=== PATIENT | female | born 1945 | race Two or more races ===

== ENCOUNTER 2025-04-09 14:22 | Emergency (ER) | payer MEDICAID, OTHER, SELFPAY ==
--- OUTSIDE RECORDS SUMMARY | 2025-04-09 12:30 | XMS_ITS | Encounter Summary ---
Author Organization [employer] Address [address] [place] [address] Care Team Providers Care Concrete Journeyman Name Role Phone Dominick Johnson Unavailable Unavail able Reji Aranda INTERNET MARKETING ANALYST Primary Care Provider + [phone] Ellie Nguyễn Unavailable Unavailable Reason for Visit * Reason Comments Follow-up Patient present in o ffice for f/u DM. Patient will receive EKG today. Encounter Details Date Type Department Care Team ([facility] st Contact Info) Description 04/09/2025 12:30 PM EDT Office Visit [facility] [address] [place] [address] Reji Aranda NP [address] [place] [address] Type 2 diabetes mellitus with hyperglycemia, with long-term current use of insulin (HCC) (Primary Dx); Primary hypertension; Hyperlipidemia, unspecified hyperlipidemia type; Stage 4 chronic kidney disease (CMS/HCC) (HCC); Gout, unspecified cause, unspecified chronicity, unspecified site; Hypothyroidism, unspecified type Social History Tobacco Use Types Packs/Day Years Used Date Smoking Tobacco: Never Smokeless Tobacco: Never Alcohol Use Standard Drinks/Week Comments Never 0 (1 standard drink = 0.6 oz pur e alcohol) Alcohol Answer Date Recorded How often do you have a drink containing alcohol ? 0 11/20/2024 How many drinks containing a lcohol do you have on a typical day when you are drinking? 0 11/20/2024 How often do you have six or more drinks on one occasion? 0 11/20/2024 Housing Stability Answer Date Recorded What is your housing situation today? I have margot phelan 11/20/[address] you li ve. Do you have problems with any of the following? None of the above 11/20/2024 Food Insecurity Answer Date Recorded Within the past 12 months, y ou worried that your food would run out before you got money to buy more: Never True 11/20/2024 Within the past 12 months,th e food you bought just didn't last and you didn't have enough money to get more: Never True Transportation Answer Date Recorded In the past 12 months, has l ack of transportation kept you from medical appts, meetings, work or from getting things needed for daily living? No 11/20/2024 Intimate Partner Violence Answer Date R ecorded Within the last year, have y ou been afraid of your partner or ex-partner? 2 07/07/2023 Within the last year, have y ou been humiliated or emotionally abused in other ways by your partner or ex-partner? 2 Within the last year, have y ou been kicked, hit, slapped, or otherwise physically hurt by your partner or ex-partner? 2 07/07/2023 Within the last year, have y ou been raped or forced to have any kind of sexual activity by your partner or ex-partner? 2 07/07/2023 Utilities Answer Date Recorded In the past 12 months, has t he electric, gas, oil or water company threatened to shut off services in your home? No 11/20/2024 Depression Answer Date Recorded Patient Health Questionnaire-2 Score 0 11/20/2024 Internet Access Answer Date Recorded Internet Access Q1 Yes 11/20/2024 Internet Access Q2 Not on file 11/20/2024 Comments Unknown Sex and Gender Information Value Date Recorded Sex Assigned at Female 06/01/2023 9:07 AM EST Legal Sex Female 9:02 AM EST Gender Identity Female 06/01/2023 9:07 AM EST Sexual Orientation Straight 06/01/2023 9: 07 AM EST documented as of this encounter Last Filed Vital Signs Vital Sign Reading Time Taken Comments Blood Pressure 163/78 04/09/2025 12:36 PM EDT Pulse 87 04/09/2025 12:36 PM EDT Temperature 36.6 C (97.9 F) 04/09/2025 12:36 PM EDT Respiratory Rate - - Oxygen Saturation 97% 04/09/2025 12:36 PM EDT Inhaled Oxygen Concentration - - Weight 60.8 kg (134 lb) 04/09/2025 12:36 PM EDT Height 154.9 cm (5' 1 ) 04/09/2025 12:36 PM EDT Body Mass Index 25.32 04/09/2025 12:36 PM EDT documented in this encounter Progress Notes * Reji Aranda NP - 04/09/2025 12:30 PM EDT 04/09/25 Ana Barcenas [id number] HPI: Ana Barcenas is a 80 y.o. female Here with daughter Pt state she is feeling well today Recent ED visit to [facility] with intense facial pain, notes still not available Rxed carbamazepine, presumably for trigeminal neuroalgia Also sent to Dental for oral pain and lip lesion (pending?) Pt states she is not taking the medication, symptoms have resolved, no pain now. T2DM, Rxed Lantus 50 units/day but taking 25 units twice daily Not on Metformin due to CKD A1c 13.4 in 02/2025 Very poor diet, mostly carbs, no vegetables. BS at home in the 300s to 400s, never lower, this morning about 420. Pt denies any polyuria, polydipsia or fatigue CKD Seen by nephrology at [facility] Did not increase ACEI due to mildly elevated K+ Started on Torsemide once daily Vit D was stopped pending labs to evaluate for elevated PTH Has f/u pending HTN, Rxed Lisinopril , states she is taking it , BP has not been controlled. HLD, Rxed atorvastatin 10 mg/day, LDL controlled 11/2024 Hypothyroid, on levothyroxine 25 mcg/day Gout. Pt on allopurinol 50 mg/day (reduced dose due to CKD) No recent sx Hearing loss Seen by audiology, pt has declined hearing aids. 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 Left breast bx many yrs ago, told negative. Colon CA screening? Patient Active Problem List Diagnosis Date Noted Hyperlipidemia 04/07/2025 Stage 4 chronic kidney disease (CMS/HCC) ([facility]) 04/07/2025 Gout 04/07/2025 Hypothyroidism 04/07/2025 Primary open angle glaucoma (POAG) of both eyes 04/07/2025 Secondary hyperparathyroidism, renal (CMS/HCC) 03/12/2025 Primary hypertension 03/12/2025 CKD (chronic kidney disease), stage IV (CMS/HCC) ([facility]) 03/12/2025 Type 2 diabetes mellitus ([facility]) 03/12/2025 Medical History[1] Surgical History[2] Medications Ordered Prior to Encounter[3] Allergies[4] Social History[5] Social History Social History Narrative Born [facility], living with daughter Review of Symptoms: Review of Systems Constitutional: Negative for fatigue. Respiratory: Negative for shortness of breath. Cardiovascular: Negative for chest pain. Endocrine: Negative for polydipsia, polyphagia and polyuria. Physical Exam: BP (!) 163/78 (BP Location: Right arm, Patient Position: Sitting, BP Cuff Size: Adult) Pulse 87 Temp 97.9 ??F (36.6 ??C) (Temporal) Ht 5' 1 (1.549 m) Wt 134 lb (60.8 kg) SpO2 97% BMI 25.32 kg/m?? Physical Exam Constitutional: Appearance: Normal appearance. Comments: Hearing impaired Cardiovascular: Rate and Rhythm: Normal rate and regular rhythm. Pulmonary: Effort: Pulmonary effort is normal. Breath sounds: Normal breath sounds. Neurological: Mental Status: She is alert. Encounter Date: 04/09/25 ECG 12 lead Narrative NSR, HR 69. Normal axis [place] and QRS unremarkable No ST-T changes ASSESSMENT AND PLAN 1. Type 2 diabetes mellitus with hyperglycemia, with long-term current use of insulin ([facility]) (Primary) Pt has uncontrolled diabetes, home readings in the 300-400s, BS in office today of 449. Pt advised to go to ED, will go to [facility]. Notes to be faxed, Triage alerted. We will f/u with patient tomorrow; consider change to 75/25 mix bid. Will need to see framing carpenter. - POCT glucose manually resulted 2. Primary hypertension Uncontrolled. EKG unremarkable today 3. Hyperlipidemia, unspecified hyperlipidemia type 4. Stage 4 chronic kidney disease (CMS/HCC) (HCC) Will f/u with nephrology. 5. Gout, unspecified cause, unspecified chronicity, unspecified site 6. Hypothyroidism, unspecified type Review next visit Follow up for to be arranged following ED visit. Reji Aranda, MSN, MSP, ANP [facility] [address] [place] [address] [1] No past medical history on file. [2] No past surgical history on file. [3] Current Outpatient Medications on File Prior to Visit Medication Sig Dispense Refill allopurinol (Zyloprim) 100 MG tablet Take one-half tablet daily 45 tablet 1 atorvastatin (Lipitor) 10 MG tablet Take 1 tablet (10 mg) by mouth Once per day. 90 tablet 1 carBAMazepine XR (TEGretol XR) 100 MG 12 hr tablet Take 100 mg by mouth 2 times daily. Do not crush, chew, or split. cholecalciferol (Vitamin D-3) 20 MCG (800 UNIT) tablet Take 1 tablet (20 mcg) by mouth Once per day. 90 tablet 1 insulin glargine (Lantus) 100 UNIT/ML injection Inject 50 Units under the skin at bedtime. 15 mL 0 insulin pen needle 29G x 12.7mm misc Use to inject 1-4 times daily as directed. 100 each 11 insulin syringe-needle U-100 31G X 5/16 1 mL misc Use to inject 1-4 times daily as directed. 100 each 3 latanoprost (Xalatan) 0.005 % ophthalmic solution Administer 1 drop into both eyes at bedtime. 2.5 mL 5 levothyroxine (Synthroid, Levoxyl) 25 MCG tablet Take 1 tablet (25 mcg) by mouth Once per day. 90 tablet 1 lisinopril 10 MG tablet Take 1 tablet (10 mg) by mouth Once per day. 90 tablet 1 omega-3 acid ethyl esters (Lovaza) 1 g capsule Take 1 g by mouth 2 times daily. No current facility-administered medications on file prior to visit. [4] No Known Allergies [5] Social History Tobacco Use Smoking status: Never Smokeless tobacco: Never Vaping Use Vaping status: Never Used Substance Use Topics Alcohol use: Never Drug use: Never documented in this encounter Plan of Treatment Upcoming Encounters Date Type Department Care Team (Late st Contact Info) Description 04/10/2025 6:[address] [facility] MEDICAL [address] [place] [address] Reji Aranda NP [address] [place] [address] 05/16/2025 10:00 AM EST Office Visit [facility] OPTOMETRY [address] [place] [address] Megha Long, OD [address] [place] [address] 05/28/2025 10:30 AM EST Office Visit [facility] [address] [place] [address] Reji Aradna NP [address] [place] [address] documented as of this encounter Procedures Procedure Name Priority Date/Time Associated Diagnosis Comments ECG 12-LEAD Routine 04/09/2025 1:25 PM EDT Primary hypertension POCT GLUCOSE Routine 04/09/2025 1:02 PM EDT Type 2 diabetes mellitus with hyperglycemia, with long-term current use of insulin (HCC) documented in this encounter Results * ECG 12 lead (04/09/2025 1:25 PM EDT) Narrative Reji Aranda NP - 04/09/2025 1:25 PM EDT NSR, HR 69. Normal axis [place] and QRS unremarkable No ST-T changes Reji Aranda NP ECG ORDERABLES Final Result * (ABNORMAL) POCT glucose manually resulted (04/09/2025 1:02 PM EDT) Glucose Blood, POC 449(A) 60 - 200 mg/dL Blood Capillary blood specimen / Unknown 04/09/2025 1:02 PM EDT Reji Aranda NP POINT OF CARE TEST ENTER/JAMI T ORDERABLES Final Result documented in this encounter Visit Diagnoses Diagnosis Type 2 diabetes mellitus with hyperglycemia, with long-term current use of insulin (HCC)- Primary Primary hypertension Unspecified essential hypertension Hyperlipidemia, unspecified hyperlipidemia type Stage 4 chronic kidney disease (CMS/HCC) (HCC) Gout, unspecified cause, unspecified chronicity, unspecified site Hypothyroidism, unspecified type documented in this encounter Care Teams Concrete Journeyman Relationship Specialty Start Date End Date Reji Aranda NP [address] [place] [address] PCP - General Internal Medicine 03/02/24 Dominick Johnson Community Health Worker 06/01/23 Ellie Nguyễn Health Navigator Financial Counseling and Assistance Services 09/07/24 documented as of this encounter
[2025-04-09 14:42] VITALS: BP 174/74; PULSE 80; RESP 16; TEMP 37; O2SAT 95; BMI 28.0
--- NOTE | 2025-04-09 14:52 | ECG_ITS ---
Test Reason : hypertension Blood Pressure : */* mmHG Vent. Rate : 77 BPM Atrial Rate : 77 BPM P-R Int : 164 ms QRS Dur : 94 ms QT Int : 406 ms P-R-T Axes : 22 -30 50 degrees QTcB Int : 459 ms Normal sinus rhythm Left axis deviation Moderate voltage criteria for LVH, may be normal variant ( R in aVL , Estuardo product ) Abnormal ECG No previous ECGs available Referred By: Flavio Knight Electronically Signed By: VIDAL MCCOY MD
--- NOTE | 2025-04-09 14:52 | ED.GENADULT ---
HPI - General Adult General Chief complaint: Recheck/Abnormal Lab/Rx Stated complaint: Pc ref here for high glucose, high bp Time Seen by Provider: 04/09/25 16:25 Source: patient, family (patient's granddaughter), EMS and network mgr (all interactions with this patient were facilitated with an [facility] house manager ) Mode of arrival: ambulatory Limitations: language barrier (all interactions with this patient were facilitated with an [facility] house manager ) History of Present Illness ED Provider: Dawna Rojas PA-C HPI narrative: Patient is an 80 year old assigned female at with a history of HTN, CKD, and DM presenting to the emergency department today with an elevated blood pressure and blood sugar from her PCP office. Patient states that she has no complaints. Patient's granddaughter states that the patient has no complaints but her PCP was concerned that her blood sugar was elevated and her blood pressure was as well so they sent her to the emergency department. Patient denies any other complaints at this time. Related Data Allergies Allergy/AdvReac Type Severity Reaction Status Date / Time No Known Allergies Allergy Verified 04/09/25 14:46 Review of Systems Constitutional: Constitutional: Reports as per HPI Eyes: Eyes: Reports as per HPI ENT: Reports as per HPI Cardiovascular: Cardiovascular: Reports as per HPI Respiratory: Respiratory: Reports as per HPI Gastrointestinal: Gastrointestinal: Reports as per HPI Genitourinary: Genitourinary: Reports as per HPI Musculoskeletal: Musculoskeletal: Reports as per HPI Integumentary/Breasts: Skin/Breast: Reports as per HPI Neurologic: Reports as per HPI Psychiatric: Psychiatric: Reports as per HPI Endocrine: Endocrine: Reports as per HPI Hematologic/Lymphatic: Hematologic/Lymphatic: Reports as per HPI Allergic/Immunologic: Allergic/Immunologic: Reports as per HPI [facility] Past Medical History Attestation statement: The following information was validated with the patient. (all information validated with the patient's granddaughter) Source: old records reviewed, obtained from family (patient's granddaughter provided additional history and confirmed the history provided by the patient.) and nursing notes reviewed Social History Social History Advance Directives: No Advance Directives Information Provided: Yes Physical Exam ED Vital Signs: Vital Signs - 24 hr 04/09/25 14:42 04/09/25 17:05 04/09/25 17:59 Temperature 98.6 F 97.8 F 97.8 F Pulse Rate 80 70 70 Respiratory Rate 16 12 12 Blood Pressure 174/74 H 147/64 H 147/64 H Pulse Oximetry 95 94 94 Oxygen Delivery Method Room Air Room Air Room Air BMI result Body Mass Index 28.0 Const General: cooperative, no acute distress, alert and awake Nutritional Appearance: well nourished Orientation/consciousness: patient oriented x3 HENMT Head: Yes normal to inspection and Yes atraumatic Ears: hearing grossly normal bilaterally and external ears normal General nose exam: Normal external nose present, no nasal discharge noted and no epistaxis Face and sinus: Yes normal facial exam, No abrasion and No laceration Mouth: Normal oral and palatal mucosa present, no drooling and no muffled voice Eyes General: appearance normal, both eyes and all related structures Periorbital: periorbital findings normal Eyelids: Yes eyelids normal Conjunctivae: conjunctivae normal Pupils: Equal, round and reactive pupils present EOM: EOMs intact bilaterally Neck Neck: Yes normal visual inspection and Yes full ROM Resp Effort & Inspection: normal respiratory effort and able to speak in complete sentences Neuro General: patient oriented x3, moves all extremities and CN's II-XI intact bilaterally Cranial nerves: Yes Equal, round and reactive pupils present Cognition (Neuro): normal cognition Extrem General: Yes normal to inspection, Yes full ROM and Yes capillary refill normal Psych Appearance: grossly normal Mental Status: mental status grossly normal Affect: normal affect Attitude: cooperative Thought process: Normal thought process present Thought content: Normal thought content present Insight: Good insight present (Psych) Course Course Course Narrative: RME: 80 yold female presents to the ED for hypertension and hyperglycemia. Patient referred to ED from primary care for a glucose of 480 at the clinic in elevated blood pressure. Patient is asymptomatic. Labs ordered Medications Administered Discontinued Medications Generic Name Dose Route Start Last Admin Trade Name Freq PRN Reason Stop Dose Admin Lactated Ringer's 1,000 mls @ 999 mls/hr 04/09/25 17:00 04/09/25 17:59 Lr IV 04/09/25 18:00 Infused .Q1H1M SABINE Infusion Medical Decision Making Medical Decision Making MDM Narrative: Patient is an 80 year old assigned female at with a history of HTN, CKD, and DM presenting to the emergency department today with an elevated blood pressure and blood sugar from her PCP office. Patient's physical exam was as noted in the physical exam portion of this note and unremarkable. Patient's blood work showed a BUN of 51, CR of 1.87, and glucose of 301. I am suspicious these results are chronic for the patient and her baseline however, I am unable to verify this given the patient has never been to [facility] and she has no records at [facility]. Patient's urine showed no acute process. Patient's EKG was unremarkable. I explained my physical exam findings as well as all test results to the patient and the patient's granddaughter. I answered all questions asked by the patient and the patient's granddaughter. Given patient's elevated BUN + glucose + CR, I gave the patient 1 liter of LR. Patient has no evidence of end organ damage and does not need any EMERGENT intervention to her blood pressure or blood sugar at this time. I stressed the importance of the patient taking her medication as directed (either prescribed or as the over the counter packaging recommends). I stressed the importance of the patient following up with her primary care provider. I stressed the importance of the patient returning to the emergency department immediately if [her symptoms were to worsen or if she were to develop any dizziness, shortness of breath, difficulty breathing, chest pain, blurry vision, loss of vision, nausea, vomiting, abdominal pain, fever, chills, back pain, or any other complaints. Patient and the patient's granddaughter verbalized agreement and understanding with this treatment plan and discharge. Differential Diagnosis Differential Diagnoses: The differential diagnosis associated with the presentation includes Hypertension Hyperglycemia CKD Admission/Observation Consideration of admission/observation: Escalation of care including admission/observation considered Patient would have been admitted to the hospital had her work up had any findings where hospital admission was appropriate and her clinical presentation warranted hospital admission. Lab Data [facility] Lab Attestation statement: I reviewed the patient's lab results. My interpretation of these results are in the [facility] Rationale portion of this note. 04/09/25 16:52 04/09/25 16:06 Labs: Lab Results 04/09/25 04/09/25 04/09/25 Range/Units 14:49 16:06 16:52 WBC 7.4 (4.8-10.8) X10*3/uL RBC 3.60 L (4.20-5.50) X10*6/uL Hgb 11.1 L (12.0-16.0) g/dl Hct 33.6 L (37.0-47.0) % MCV 93.3 (80.0-98.0) fL MCH 30.8 (27.0-33.0) pg MCHC 33.0 (31.0-35.0) g/dl RDW 13.5 (11.0-16.0) % Plt Count 239 (160-400) X10*3/uL MPV 10.6 (9.4-12.3) fL Immature Gran % (Auto) 0.3 (0.0-0.4) % Neut % (Auto) 53.0 (45-73) % Lymph % (Auto) 31.9 (20-40) % Crawford % (Auto) 10.4 (2-11) % Eos % (Auto) 3.5 (0-4) % Baso % (Auto) 0.9 (0-2) % Lymph # (Auto) 2.4 (1.2-4.9) X10*3/uL Crawford # (Auto) 0.8 (0.1-1.2) X10*3/uL Eos # (Auto) 0.3 (0.0-0.4) X10*3/uL Baso # (Auto) 0.1 (0.0-0.2) X10*3/uL Abs Immat Gran (auto) 0.02 (0.00-0.03) X10*3/uL Absolute Neuts (auto) 3.9 (2.0-8.3) x10*3/uL Absolute Nucleated RBC 0.000 (0.0-0.012) X10*3/uL Nucleated RBC % (auto) 0.0 (0.0-0.2) /100WBC Sodium 135 (135-145) mmol/L Potassium 5.0 (3.3-5.1) mmol/L Chloride 108 (96-108) mmol/L Carbon Dioxide 18 L (22-29) mmol/L Anion Gap 14 (12-20) BUN 51 H (9-16) mg/dL Creatinine 1.87 H (0.5-1.4) mg/dL Estim Creat Clear Calc 19.8 Estimated GFR 26 POC Glucose 352 H* (60-115) mg/dL Random Glucose 301 H (60-115) mg/dL Calcium 9.7 (8.4-10.2) mg/dL Total Bilirubin 0.3 (0.0-1.0) mg/dL AST 53 H (5-31) U/L ALT 54 H (0-31) U/L Alkaline Phosphatase 176 H (39-117) U/L Troponin I High Sens 4.5 (<3.5-17.0) ng/L Total Protein 8.0 (6.5-8.0) g/dL Albumin 4.3 (3.5-5.0) g/dL Beta-Hydroxybutyrate 0.12 (0.02-0.27) mmol/L Urine Color Yellow Urine Appearance Clear Urine pH 5.0 (5.0-9.0) Ur Specific Leonore 1.010 (1.005-1.025) Urine Protein Negative (Neg-Trace) mg/dL Urine Glucose (UA) Negative (Negative) mg/dL Urine Ketones Negative (Negative) mg/dL Urine Blood Negative (Negative) Urine Nitrite Negative (Negative) Ur Leukocyte Esterase Small (1+) H (Negative) Urine RBC 0-2 (0-2) /HPF Urine WBC 0-5 (0-5) /HPF Ur Squamous Epith Cells 0-2 (0-2) /HPF Urine Bacteria None Seen (None Seen) Hyaline Casts 0-2 (0-2) /LPF Independent Interpretation I performed an independent interpretation of an: EKG Interpretation: I independently interpreted this EKG and am in agreement with the below findings: Vent. Rate: 77 BPM Atrial Rate: 77 BPM P-R Int: 164 ms QRS Dur: 94 ms QT Int: 406 ms P-R-T Axes: 22 -30 50 degrees QTcB Int: 459 ms Normal sinus rhythm Left axis deviation Moderate voltage criteria for LVH, may be normal variant (R in aVL , [employer]) No previous ECGs available DD/ 1550 Chronic Conditions Patient?s care impacted by: Diabetes and Hypertension Discharge Plan Discharge Clinical Impression: Diabetes, Hypertension Patient Disposition: Home, Self-Care Instructions: Heart Healthy Diet (DC), Chronic Hypertension (DC), Diabetes and Nutrition (ED), Diabetes and Exercise (ED) Additional Instructions: Your work up today did not show any EMERGENT findings. You should continue to follow up with your primary care provider for your elevated blood pressure and blood sugar. Felton an?lisis de hoy no mostr? justo?n hallazgo urgente. Debe continuar con felton m?dico de cabecera para el seguimiento de felton presi?n arterial y glucosa en anne elevadas. IF you are prescribed home medications and/or you are taking over the counter medications at home- it is very important you continue to do so as prescribed / directed unless told otherwise. SI le recetan medicamentos y/o est? tomando medicamentos de venta ashley, es muy importante que contin?e haci?ndolo seg?n lo recetado/indicado a menos que le indiquen lo contrario. Follow up with your primary care provider. Return to the emergency department immediately if your symptoms worsen or if you develop any dizziness, shortness of breath, difficulty breathing, chest pain, blurry vision, loss of vision, nausea, vomiting, abdominal pain, fever, chills, back pain, or any other complaints. Geeta?seguimiento?con felton m?dico de atenci?n primaria. Acuda inmediatamente al servicio de urgencias si giana s?ntomas empeoran o si presenta falta de aliento, dificultad para respirar, dolor tor?cico, mareos, aturdimiento, dolor de espalda, dolor abdominal, fiebre, escalofr?os o cualquier otro s?ntoma. Please see the information below about our Patient Portal. If you are not yet enrolled in the [facility] Patient Portal, you will receive an enrollment email invitation following your visit to any [facility] care setting. You may also self-enroll in the Patient Portal by visiting our website: [email or web address] The following information is required to access the Patient Portal: - Your [facility] Medical Record Number - Your personal home email address (must match what is in your electronic medical record, Registration staff can assist with this) - Name - Date of Capabilities of the Patient Portal: - Message some providers - View upcoming appointments - Access your health summary, medical history, and visit history - View current conditions and allergies - View procedure and lab results - View your medications, including guidelines, side effects, and precautions - Complete pre-appointment questionnaires requested by your provider - Ready summary reports of your office visits and procedures To access the Patient Portal Mobile Hugh, follow these directions: - Search [employer] in the [employer] Store or [employer] Store - Download the Hugh - Search for [facility] - Enter your login/password Portal del paciente Si usted no esta inscrito en el portal de pacientes de [facility] y [facility], recibira anita invitacion de inscripcion despues de felton visita al [facility] o al [facility] via correo electronico. Tambien puede inscribirse voluntariamente en el portal de pacientes visitando nuestra pagina web: [email or web address] La siguiente informacion sera requerida para acceder al portal: - Felton marie de historia medica de [facility] - Felton direccion de correo electronico personal - Nombre - Fecha de nacimiento Capacidades: Las siguientes capacidades estan disponibles en el portal de pacientes: - Enviar mensajes a algunos doctores - Verificar proximas citas - Acceso a felton historial de tim, registro medico e historial de visitas - Samy las condiciones actuales y alergias samy procedimientos y resultados del laboratorio - Samy giana medicamentos, incluyendo las pautas - Efectos secundarios y precauciones - Completar o llenar formularios / cuestionarios de - Citas solicitadas por felton doctor - Leer los resumenes de reportes medicos de giana visitas y procedimientos Gavin acceder a la aplicacion movil: - Busque [employer] en la [employer] o [employer] - Descargue la aplicacion - Busque [facility] - Ingrese felton nombre de usuario / Contrasena Interventions: ED Discharge Assessment Last Done: 04/09/25 17:59 Discharge Date/Time: 04/09/25 18:47 Print Language: Macanese
[2025-04-09 14:55] LABS: Glucose, Whole Blood 352 mg/dL (60-115)
--- NOTE | 2025-04-09 15:52 | MHC.EDTECH ---
delay ekg due ekg being in used by another tech nurse aware
[2025-04-09 16:25] LABS: Appearance Urine Clear; Glucose Urine UA Negative (Negative); PH 5.0 (5.0-9.0); Specific Gravity - Urine 1.010 (1.005-1.025); UMIC TRIGGER UACC YES
[2025-04-09 16:35] LABS: UACC Culture Trigger YES
[2025-04-09 16:46] LABS: Troponin-I High Sensitivity 4.5 ng/L (<3.5-17.0)
[2025-04-09 16:51] LABS: Alanine Aminotransferase 54 U/L (0-31); Albumin Level 4.3 g/dL (3.5-5.0); Alkaline Phosphatase 176 U/L (39-117); Anion Gap 14 (12-20); Aspartate Amino Transferase 53 U/L (5-31); Blood Urea Nitrogen 51 mg/dL (9-16); Calcium 9.7 mg/dL (8.4-10.2); Carbon Dioxide 18 mmol/L (22-29); Chloride 108 mmol/L (96-108); Creatinine Clr Calc Pharmacy 19.8; Estimated Glomerular Filt Rate 26; Potassium 5.0 mmol/L (3.3-5.1); Sodium 135 mmol/L (135-145); Total Protein 8.0 g/dL (6.5-8.0)
[2025-04-09 16:58] LABS: Hematocrit 33.6 % (37.0-47.0); Hemoglobin 11.1 g/dl (12.0-16.0); Imm Gran Abs Auto 0.02 X10*3/uL (0.00-0.03); Imm Gran Pct Auto 0.3 % (0.0-0.4); Lymphocytes Absolute Auto 2.4 X10*3/uL (1.2-4.9); Mean Corpuscular HGB Conc 33.0 g/dl (31.0-35.0); Mean Corpuscular Hemoglobin 30.8 pg (27.0-33.0); Mean Corpuscular Volume 93.3 fL (80.0-98.0); NRBC Abs Auto 0.000 X10*3/uL (0.0-0.012); NRBC Pct Auto 0.0 /100WBC (0.0-0.2); Platelet Count 239 X10*3/uL (160-400); Red Blood Count 3.60 X10*6/uL (4.20-5.50); White Blood Count 7.4 X10*3/uL (4.8-10.8)
[2025-04-09 17:05] VITALS: BP 147/64; PULSE 70; RESP 12; TEMP 36.6; O2SAT 94
[2025-04-09] MEDS: Lactated Ringers 1,000 ML 999 ML IV (17:21)
[2025-04-09 17:47] LABS: MANUAL DIFF FLAG NO
[2025-04-09 17:59] VITALS: BP 147/64; PULSE 70; RESP 12; TEMP 36.6; O2SAT 94
--- OUTSIDE RECORDS SUMMARY | 2025-04-09 18:38 | XMS_ITS | Clinical Summary ---
Author Organization [employer] Address [address] [facility] 7t [place] [address] Care Team Providers Care Topology Professor Name Role Phone Dominick Johnson Unavailable Unavail able Reji Aranda NP Primary Care Provider + [phone] Ellie Nguyễn Unavailable Unavailable Allergies No known active allergies Medications omega-3 acid ethyl esters (Lovaza) 1 g capsule Take 1 g by mouth 2 times daily. Active atorvastatin (Lipitor) 10 MG tabletIndications :Hyperlipidemia, unspecified hyperlipidemia type Take 1 tablet (10 mg) by mouth Once per day. 90 tablet 025 Active allopurinol (Zyloprim) 100 MG tabletIndications :Gout, unspecified cause, unspecified chronicity, unspecified site Take one-half tablet daily 45 tablet 025 Active cholecalciferol (Vitamin D-3) 20 MCG (800 UNIT) tabletIndications :Stage 4 chronic kidney disease (CMS/HCC) (HCC) Take 1 tablet (20 mcg) by mouth Once per day. 90 tablet 025 Active levothyroxine (Synthroid, Levoxyl) 25 MCG tabletIndications :Hypothyroidism, unspecified type Take 1 tablet (25 mcg) by mouth Once per day. 90 tablet 025 Active lisinopril 10 MG tabletIndications :Primary hypertension Take 1 tablet (10 mg) by mouth Once per day. 90 tablet 1 025 2024 Active carBAMazepine XR (TEGretol XR) 100 MG 12 hr tablet Take 100 mg by mouth 2 times daily. Do not crush, chew, or split. Active latanoprost (Xalatan) 0.005 % ophthalmic solution Administer 1 drop into both eyes at bedtime. 2.5 mL 5 025 2025 Active insulin glargine (Lantus) 100 UNIT/ML injectionIndicati ons:Type 2 diabetes mellitus with hyperglycemia, with long-term current use of insulin (HCC) Inject 50 Units under the skin at bedtime. 15 mL 025 Active insulin syringe-needle U-100 31G X 5/16 1 mL miscIndications:T ype 2 diabetes mellitus with hyperglycemia, with long-term current use of insulin ([facility]) Use to inject 1-4 times daily as directed. 100 each 3 03/20/ 025 2025 Active insulin pen needle 29G x 12.7mm miscIndications:T ype 2 diabetes mellitus with hyperglycemia, with long-term current use of insulin ([facility]) Use to inject 1-4 times daily as directed. 100 each 11 025 2025 Active insulin glargine (Lantus) 100 UNIT/ML injectionIndicati ons:Type 2 diabetes mellitus with hyperglycemia, with long-term current use of insulin ([facility]) Inject 50 Units under the skin at bedtime. 15 mL 3 025 2024 Discontinued(R eorder (will not trigger notification to Pharmacy)) Active Problems Problem Noted Date Diagnosed Date Hyperlipidemia 04/07/2025 Stage 4 chronic kidney disease (CMS/HCC) Gout 04/07/2025 Hypothyroidism 04/07/2025 Primary open angle glaucoma (POAG) of both eyes 04/07/2025 Secondary hyperparathyroidism, renal 03/12/2025 Primary hypertension 03/12/2025 CKD (chronic kidney disease), stage IV (CMS/HCC) 03/12/2025 Type 2 diabetes mellitus 03/12/2025 Encounters Date Type Department Care Team Description 04/09/2025 12:30 PM EDT Office Visit [facility] MED[facility] [address] [place] [address] Reji Aranda NP Type 2 diabetes mellitus with hyperglycemia, with long-term current use of insulin (HCC) (Primary Dx); Primary hypertension; Hyperlipidemia, unspecified hyperlipidemia type; Stage 4 chronic kidney disease (CMS/HCC) (HCC); Gout, unspecified cause, unspecified chronicity, unspecified site; Hypothyroidism, unspecified type 04/09/2025 Telephone [facility] MEDICAL [address] [place] [address] Reji Aranda NP ED f/u 03/20/2025 Telephone [facility] MEDICAL [address] [place] [address] Reji Aranda NP Med Refill 03/16/2025 Refill [facility] MEDICAL [address] [place] [address] Reji Aranda NP Type 2 diabetes mellitus with hyperglycemia, with long-term current use of insulin ([facility]) 03/15/2025 12:00 PM EDT Office Visit [facility] OPTOMETRY [address] [place] [address] Megha Long, IMELDA Type 2 diabetes mellitus with other specified complication, without long-term current use of insulin ([facility]) (Primary Dx); Combined forms of age-related cataract of both eyes; Primary open angle glaucoma of both eyes, unspecified glaucoma stage; Presbyopia of both eyes 03/14/2025 3:00 PM EDT Office Visit [address] [address] [facility] [place], [facility] Facial pain (Primary Dx); Oral lesion 03/12/[address] [address] Reji Aranda NP oral/dental pain, unable to eat 03/08/2025 Patient Outreach [facility] Case Management [address] [place] [address] Chiquis Horvath CHW - visit to ER 03/06/2025 Telephone [facility] MEDICAL [address] [place] [address] Reji Aranda NP pain in gums 02/26/2025 10:30 AM EDT Office Visit [address] [address] Reji Aranda NP Type 2 diabetes mellitus with hyperglycemia, with long-term current use of insulin ([facility]) (Primary Dx); Primary hypertension; Hyperlipidemia, unspecified hyperlipidemia type; Stage 4 chronic kidney disease (CMS/[facility]); Gout, unspecified cause, unspecified chronicity, unspecified site; Hypothyroidism, unspecified type; Bilateral hearing loss, unspecified hearing loss type; Poor vision 01/25/2025 Telephone [facility] MEDICAL [address] [place] [address] Reji Aranda NP BS, Lantus 01/24/2025 [facility] [address] [place] [address] Reji Aranda NP Type 2 diabetes mellitus with hyperglycemia, with long-term current use of insulin ([facility]) 01/11/2025 Orders Only [facility] MEDICAL [address] [place] [address] Reji Aranda NP 01/09/2025 Telephone [facility] MEDICAL [address] [place] [address] Reji Aranda NP lab order needs correction from Last 3 Months Immunizations Immunization Administration Dates Next Due Pneumococcal Conjugate PCV 21 11/20/2024 Tdap 11/20/2024 Family History Medical History Relation Name Comments Glaucoma Father Macular degeneration Father Relation Name Status Comments Father Social History Tobacco Use Types Packs/Day Years Used Date Smoking Tobacco: Never Smokeless Tobacco: Never Tobacco Cessation:Counseling Given: Not Answered Alcohol Use Standard Drinks/Week Comments Never 0 [...] Orientation Straight 06/01/2023 9: 07 AM EST Last Filed Vital Signs Vital Sign Reading [...] Mass Index 25.32 04/09/2025 12:36 PM EDT Plan of Treatment Upcoming Encounters Date Type Department Care Team (Late st Contact Info) Description 04/10/2025 6:40 PM EDT Telemedicine [facility] MEDICAL [address] [place] [address] Reji Aranda NP [address] [place] [address] 05/16/2025 10:00 AM EST Office Visit [facility] OPTOMETRY [address] [place] [address] Megha Long OD [address] [place] [address] 05/28/2025 10:30 AM EST Office Visit [facility] MEDICAL [address] [place] [address] Reji Aranda NP [address] [place] [address] Health Maintenance Due Date Last Done Comments Diabetes: Foot Exam 01/19/1954 Zoster Vaccines (1 of 2) 01/19/1994 RSV Patients and Patients Aged 60 years or older (1 - 1-dose 75+ series) 01/19/2019 COVID-19 Vaccine ( season) 2025 11/30/2020, 11/03/2020 Influenza Vaccine (#1) 2025 Diabetes: Hemoglobin A1C 05/29/2025 02/26/2025, 05/2 03/2025 Alcohol/Substance Use Screening 11/20/2025 11/20/2024 Depression Screening 11/20/2025 11/20/2024, 11/21/19 SDOH Screening 11/20/2025 11/20/2024 Lipid Panel 11/30/2025 11/30/2024 Diabetes: Urine Protein Screening 03/12/2026 03/12/2025 Tobacco Screening 03/15/2026 03/15/2025 Eye Exam 03/15/2027 03/15/2025, 03/05, 03/15/2025, Additional history exists DTaP/Tdap/Td Vaccines (2 - Td or Tdap) 11/20/2034 11/20/2024 Pneumococcal Vaccine: 50+ Years Completed 11/20/2024 HIB Vaccines Aged Out No longer eligi ble based on patient's age to complete this topic HPV Vaccines Aged Out No longer eligi ble based on patient's age to complete this topic Hepatitis A Vaccines Aged Out No long er eligible based on patient's age to complete this topic Hepatitis B Vaccines Aged Out No long er eligible based on patient's age to complete this topic IPV Vaccines Aged Out No longer eligi ble based on patient's age to complete this topic Meningococcal B Vaccine Aged Out No l onger eligible based on patient's age to complete this topic Meningococcal Vaccine Aged Out No ibrahima albin eligible based on patient's age to complete this topic RSV under 20 months Aged Out No longe r eligible based on patient's age to complete this topic Rotavirus Vaccines Aged Out No longer eligible based on patient's age to complete this topic Procedures Procedure Name Priority Date/Time Associated Diagnosis Comments ECG 12-LEAD Routine 04/09/2025 1:25 PM EDT Primary hypertension POCT GLUCOSE Routine 04/09/2025 1:02 PM EDT Type 2 diabetes mellitus with hyperglycemia, with long-term current use of insulin ([facility]) OCT, OPTIC NERVE - OU - BOTH EYES Routine 03/15/2025 Primary open angle glaucoma of both eyes, unspecified glaucoma stage FUNDUS PHOTOS - OU - BOTH EYES Routine 03/15/2025 Primary open angle glaucoma of both eyes, unspecified glaucoma stage POCT GLYCOSYLATED HEMOGLOBIN (HGB A1C) Routine 02/26/2025 10:31 AM EDT Type 2 diabetes mellitus with hyperglycemia, with long-term current use of insulin ([facility]) VITAMIN B12 Routine 01/11/2025 8:16 AM EDT FOLATE, SERUM Routine 01/11/2025 8:16 AM EDT CBC Routine 01/11/2025 8:16 AM EDT LIPID PANEL, STANDARD Routine 11/30/2024 8:16 AM EDT Hyperlipidemia, unspecified hyperlipidemia type from Last 3 Months or Most Recently Relevant to Health Maintenance Results * ECG 12 lead (04/09/2025 1:25 PM EDT) Narrative Reji Aranda NP - 04/09/2025 1:25 PM EDT NSR, HR 69. Normal axis NV and QRS unremarkable No ST-T changes Reji Aranda NP ECG ORDERABLES Final Result * (ABNORMAL) POCT glucose manually resulted (04/09/2025 1:02 PM EDT) Glucose Blood, POC 449(A) 60 - 200 mg/dL Blood Capillary blood specimen / Unknown 04/09/2025 1:02 PM EDT Result [facility] Reji Aranda NP POINT OF CARE TEST ENTER/JAMI T ORDERABLES Final Result * OCT, Optic Nerve - OU - Both Eyes (03/15/2025) Impressions Megha Long, OD - 03/15/2025 Right eye (OD): Diffuse RNFL thinning sup/jordin/inf; GCC inf hemifield loss Left eye (OS): Diffuse RNFL thinning sup/jordin/inf; GCC inf hemifield loss us Megha Long OD OPHTH TOMOGRAPHY Final Result * Fundus Photos - OU - Both Eyes (03/15/2025) Impressions Megha Long, OD - 03/15/2025 Right eye (OD): baseline optic nerve photo Left eye (OS): baseline optic nerve photo us Megha Long OD OPHTH PHOTOGRAPHY Final Result * (ABNORMAL) POCT glycosylated hemoglobin (Hgb A1c) (02/26/2025 10:31 AM EDT) Pathologist [facility] Hemoglobin A1C 13.4(A) 4.0 - 5.7 % Blood Capillary blood specimen / Unknown 02/26/2025 10:31 AM EDT Reji Aranda NP POINT OF CARE TEST ENTER/JAMI T ORDERABLES Final Result * (ABNORMAL) CBC (01/11/2025 8:16 AM EDT) Pathologist [facility] White Blood Cell Count 8.3 3.4 - 10.8 x10E3/uL [facility] Red Blood Cell Count 3.91 3.77 - 5.28 x10E6/uL [facility] Hemoglobin 12.2 11.1 - 15.9 g/dL [facility] Hematocrit 38.7 34.0 - 46.6 % [facility] MCV 99(H) 79 - 97 fL [facility] MCH 31.2 26.6 - 33.0 pg [facility] MCHC 31.5 31.5 - 35.7 g/dL [facility] RDW 13.0 11.7 - 15.4 % [facility] Platelet Count 252 150 - 450 x10E3/uL [facility] 01/11/2025 8:16 AM EDT 01/11/2025 Narrative Resulting Agency Comment Performed at: 01 - [facility] [address] [id number] Customer Sales Representative: Amber De Los Santos MD, Phone: [phone] Reji Aranda NP LAB BLOOD ORDERABLES Final R esult [facility] * Folate, Serum (01/11/2025 8:16 AM EDT) Pathologist [facility] Folate, Serum >20.0 >3.0 ng/mL [facility] Comment: A serum folate concentration of less than 3.1 ng/mL is considered to represent clinical deficiency. 01/11/2025 8:16 AM EDT 01/11/2025 Narrative Resulting Agency Comment Performed at: - [address] [id number] Customer Sales Representative: Amber De Los Santos MD, Phone: [phone] Reji Aranda NP LAB BLOOD ORDERABLES Final R esult [facility] * (ABNORMAL) Vitamin B12 (01/11/2025 8:16 AM EDT) Vitamin B12 1,578(H) 232 - 1,245 pg/mL [facility] 1 01/11/2025 8:16 AM EDT 01/11/2025 Narrative Resulting Agency Comment Performed at: [address] [id number] Customer Sales Representative: Amber De Los Santos MD, Phone: [phone] Reji Aranda NP LAB BLOOD ORDERABLES Final R esult Performing Organization Address City/[facility]/ZIP Co de Phone Number [facility] * Lipid Panel, Standard 23281 (11/30/2024 8:16 AM EDT) Cholesterol, Total 108 100 - 199 mg/dL [facility] Triglycerides 121 0 - 149 mg/dL [facility] HDL Cholesterol 51 >39 mg/dL [facility] VLDL Cholesterol Sebas 21 5 - 40 mg/dL [facility] LDL Chol Calc (NIH) 36 0 - 99 mg/dL [facility] Blood Venous blood specimen / Unknown 11/30/2024 8:16 AM EDT 11/30/2024 Narrative [facility] - 12/02/2024 6:05 AM EDT Performed at: [address] [id number] Customer Sales Representative: Amber De Los Santos MD, Phone: [phone] Reji Rosi AERIAL PHOTOGRAPHER LAB BLOOD ORDERABLES Final R esult [facility] 1 from Last 3 Months or Most Recently Relevant to Health Maintenance Insurance [employer] Member Subscriber Plan / Payer (Ef fective 2024-Present) Name:Ana Barcenas Relation to Subscriber:Self Name:Ana aBrcenas Payer ID:Not on file Group ID:Not on file Type:Medicaid Address: [address] [employer] [facility] Care Teams Topology Professor Relationship Specialty Start Date End Date Reji Aranda NP [address] [place] [address] PCP - General Internal Medicine 03/02/24 Dominick Johnson Community Health Worker 06/01/23 Ellie Nguyễn Health Navigator Financial Counseling and Assistance Services 09/07/24
--- OUTSIDE RECORDS SUMMARY | 2025-04-09 18:38 | XMS_ITS | Encounter Summary ---
Author Organization [employer] Address 75 [facility] 7t [place] [address] Care Team Providers Care Scientific Writer Name Role Phone Dominick Johnson Unavailable Unavail able Reji Aranda WASTE DISPOSAL ATTENDANT Primary Care Provider + [phone] Ellie Nguyễn Unavailable Unavailable Reason for Visit * Reason Onset Date Comments ED f/u 04/09/2025 Encounter Details Date Type Department Care Team (Late st Contact Info) Description 04/09/2025 Telephone [facility] MED[facility] [address] [place] [address] Reji Aranda, THERON [address] [place] [address] ED f/u Social History Tobacco Use Types Packs/Day Years [...] the past 12 months, has t he [employer] 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 Hypertension poorly controlled, as well. EKG wnl Sent to ED at [facility]. To Nursing for f/u. She is likely to need televisit tomorrow to adjust her medications, and I will need the notes from the ED. documented in this encounter Plan of Treatment Upcoming Encounters Date Type Department Care Team (Late st Contact Info) Description 04/10/2025 6:40 PM EDT Telemedicine [facility] [address] [place] [address] Reji Aranda NP [address] [place] [address] 05/16/2025 10:00 AM EST Office Visit [facility] OPTOMETRY [address] [place] [address] Megha Long, OD [address] [place] [address] 05/28/2025 10:30 AM EST Office Visit [facility] MEDICAL [address] [place] [address] Reji Aranda NP [address] [place] [address] documented as of this encounter Visit Diagnoses Not on filedocumented in this encounter Care Teams Scientific Writer Relationship Specialty Start Date End Date Reji Aranda NP [address] [place] [address] PCP - General Internal Medicine 03/02/24 Dominick Johnson Community Health Worker 06/01/23 Ellie Nguyễn Health Navigator Financial Counseling and Assistance Services 09/07/24 documented as of this encounter
--- OUTSIDE RECORDS SUMMARY | 2025-04-09 18:38 | XMS_ITS | Encounter Summary ---
Author Organization [employer] Address [address] [facility] 7t [place] [address] Care Team Providers Care Crab Picker Name Role Phone Dominick Johnson Unavailable Unavail able Reji Aranda PIPE ORGAN TECHNICIAN Primary Care Provider + [phone] Ellie Nguyễn Unavailable Unavailable Reason for Visit * Reason Onset Date Comments Blood Sugar Problem 03/02/2024 Encounter Details Date Type Department Care Team (Late st Contact Info) Description 03/02/2024 Telephone [facility] MED[facility] [address] [place] [address] Reji Aranda, THERON [address] [place] [address] Blood Sugar Problem Social History Tobacco Use Types Packs/Day Years Used Date Smoking Tobacco: Never Assessed Alcohol Answer Date Recorded How often do you have a drink containing alcohol ? 0 07/07/2023 Average Number of Drinks Not on file 024 How often do you have six or more drinks on one occasion? 0 07/07/2023 Score 0 07/07/2023 Housing Stability Answer Date Recorded What is your housing situation today? I have margot phelan 07/07/[address] you li ve. Do you have problems with any of the following? None of the above 07/07/2023 Food Insecurity Answer Date Recorded Within the past 12 months, y ou worried that your food would run out before you got money to buy more: Never True 07/07/2023 Within the past 12 months,th e food you bought just didn't last and you didn't have enough money to get more: Never True 09/2023 Transportation Answer Date Recorded In the past 12 months, has l ack of transportation kept you from medical appts, meetings, work or from getting things needed for daily living? I am not sure 07/07/2023 Intimate Partner Violence Answer Date R ecorded [...] shut off services in your home? No 07/07/2023 Comments Unknown Sex and Gender Information Value Date Recorded Sex Assigned at Female 06/01/2023 9:07 AM EST Legal Sex Female 9:02 AM EST Gender Identity Female 06/01/2023 9:07 AM EST Sexual Orientation Straight 06/01/2023 9: 07 AM EST documented as of this encounter Miscellaneous Notes * Telephone Encounter - Ananya Dangelo RN - 03/02/2024 10:50 AM EDT Spoke to talia Matos. Reports FBS 480 this morning. Says pt went to [facility] ED on 02/24 and they did nothing for pt and told her to get a PCP. Pt never seen here, no records in archive. Has NPV on 03/21/24. TE to HIM to get [facility] ED record from February 24 and return to me, please. documented in this encounter Plan of Treatment Upcoming Encounters Date Type Department Care Team (Late st Contact Info) Description 04/10/2025 6:40 PM EDT Telemedicine [facility] MEDICAL [address] [place] [address] Reji Aranda NP [address] [place] [address] 05/16/2025 10:00 AM EST Office Visit [facility] OPTOMETRY [address] [place] [address] Mercedes Megha, OD [address] [place] [address] 05/28/2025 10:30 AM EST Office Visit [facility] MEDICAL [address] [place] [address] Reji Aranda NP [address] [place] [address] documented as of this encounter Visit Diagnoses Not on filedocumented in this encounter Care Teams Crab Picker Relationship Specialty Start Date End Date Reji Aranda NP [address] [place] [address] PCP - General Internal Medicine 03/02/24 Dominick Johnson Community Health Worker 06/01/23 Ellie Nguyễn Health Navigator Financial Counseling and Assistance Services 09/07/24 documented as of this encounter
== END 2025-04-09 18:47 | disposition home or self-care (01) ==
PROVIDERS: Physician Assistant; Emergency Provider Student in an Organized Health Care Education/Training Program
DX: E11.65 Type 2 diabetes mellitus with hyperglycemia (principal); I12.9 Hypertensive chronic kidney disease with stage 1 through stage 4 chronic kidney disease, or unspecified chronic kidney disease; E11.22 Type 2 diabetes mellitus with diabetic chronic kidney disease; N18.9 Chronic kidney disease, unspecified
CPT/HCPCS: 36415; 80053; 81001; 82010; 82947; 84484; 85025; 87086; 93005; 96360; 99284; J7120

== ENCOUNTER → 2025-04-09 14:52 | Outpatient (BNV) | payer MEDICAID, SELFPAY | PROVIDERS: Emergency Provider Student in an Organized Health Care Education/Training Program; Visit Provider Internal Medicine Cardiovascular Disease | DX: R94.31 Abnormal electrocardiogram [ECG] [EKG] (principal); I10 Essential (primary) hypertension | CPT/HCPCS: 93010 ==